=== PATIENT | female | born 1970 | race Hispanic/Latino ===

== ENCOUNTER 2019-03-31 18:33 | Emergency (ER) | payer SELFPAY ==
[2019-03-31 18:41] VITALS: TEMP 98.8; O2SAT 98
--- NOTE | 2019-03-31 21:04 | ED PDOC ---
Lower Extremity Pain/Injury Time Seen by Provider: 03/31/19 18:57 Chief Complaint (Nursing): Lower Extremity Problem/Injury Chief Complaint (Provider): Left Ankle Pain History Per: Patient History/Exam Limitations: no limitations Onset/Duration Of Symptoms: Hrs Additional Complaint(s): 48 year old female with no significant medical history presents to ED with left ankle pain since this morning. Patient states that she inverted her ankle by missing a step and her lateral aspect is worse with weight bearing and unable to walk. She took Tylenol this morning but denies numbness, tingling or other injury PMD: none provided (patient is visiting from [place]) Past Medical History Reviewed: Historical Data, Nursing Documentation, Vital Signs Vital Signs: Last Vital Signs Temp 98.8 F 03/31/19 18:38 Pulse 114 H 03/31/19 18:38 Resp 20 03/31/19 18:38 BP 158/98 H 03/31/19 18:38 Pulse Ox 98 03/31/19 18:38 Primary Care Provider: FAMILY PROVIDER,NO - Medical History PMH: No Chronic Diseases - Surgical History Surgical History: No Surg Hx - Family History Family History: States: No Known Family Hx - Social History Current smoker - smoking cessation education provided: No Alcohol: None Drugs: Denies - Home Medications Home Medications: Ambulatory Orders Medication Instructions Recorded Aspirin 325 mg PO DAILY #14 tab 03/31/19 - Allergies Allergies/Adverse Reactions: Allergies Allergy/AdvReac Type Severity Reaction Status Date / Time No Known Allergies Allergy Verified 03/31/19 18:41 Review of Systems ROS Statement: Except As Marked, All Systems Reviewed And Found Negative Musculoskeletal: Positive for: Leg Pain (left ankle pain, inverted), Other (bilateral aspect worse with weight bearing) Neurological: Negative for: Numbness, Other (no tingling) Physical Exam - Reviewed Nursing Documentation Reviewed: Yes Vital Signs Reviewed: Yes - Physical Exam Comments: . GENERAL APPEARANCE: Patient is awake, alert, oriented x 3, in no acute distress. SKIN: Warm, dry; (-) cyanosis. CHEST AND RESPIRATORY: (-) chest wall tenderness. Lungs: (-) rales, (-) rhonchi, (-) wheezes; breath sounds equal bilaterally. HEART AND CARDIOVASCULAR: (-) irregularity; (-) murmur, (-) gallop. ANKLE: both lower extremities pulse 2+, capillary refill less than 2 seconds, LLE: lateral malleolus tenderness with swelling, full ROM, inversion causes pain. Achilles tendon intact and nontender. (-) deformity. (-) distal neurovascular deficit _. NEURO AND PSYCH: Mental status as above. - ECG O2 Sat by Pulse Oximetry: 98 (RA) Pulse Ox Interpretation: Normal Medical Decision Making Medical Decision Making: Time: 2039 Initial Plan: --Xray 2009 Xray reviewed by JON and determined that there are no acute fractures or dislocations. Supervisor [employer]ust[employer]ians agreed, and recommended berenice wrap, air cast, crutches, aspirin 325 mg as patient is flying tomorrow pt does not want crutches, states she doesnt want to bring on plane, will get a wheelchair to transport her at airport 2049 Patient is medically stable and cleared for discharge home Discussed results, diagnosis, treatment, return precautions nad f/u with pt who is understanding, in agreement and stable for dc Scribe Attestation: Documented by Carson Ngo acting as a scribe for Aravind Marcum PA-C. Provider Scribe Attestation: All medical record entries made by the Scribe were at my direction and personally dictated by me. I have reviewed the chart and agree that the record accurately reflects my personal performance of the history, physical exam, medical decision making, and the department course for this patient. I have also personally directed, reviewed, and agree with the discharge instructions and disposition. Disposition - Clinical Impression Clinical Impression: Left ankle sprain - Patient ED Disposition Is Patient to be Admitted: No Counseled Patient/Family Regarding: Studies Performed, Diagnosis, Need For Followup, Rx Given - Disposition Referrals: your, doctor [Other] Disposition: Routine/Home Disposition Time: 20:50 Condition: STABLE Additional Instructions: Thank you for letting us take care of you today. Rest, ice and elevate. Wear berenice wrap for compression, and air cast for support. Avoid walking for 3-4 days to give rest. Take Aspirin as directed. Follow up with your doctor IAN. The emergency medical care you received today was directed at your acute symptoms. If you were prescribed any medication, please fill it and take as directed. It may take several days for your symptoms to resolve. Return to the Emergency Department if your symptoms worsen, do not improve, or if you have any other problems. Please contact your doctor in 2 days for re-evaluation and follow up / or call one of the physicians/clinics you have been referred to that are listed on the Patient Visit Information form that is included in your discharge packet. Bring any paperwork you were given at discharge with you along with any medications you are taking to your follow up visit. Our treatment cannot replace ongoing medical care by a primary care provider (PCP) outside of the emergency department. Prescriptions: Aspirin 325 mg PO DAILY #14 tab Instructions: Ankle Sprain (DC) Forms: [employer] ([place]) Print Language: TAJIK - POA Present On Arrival: None
[2019-03-31 21:08] VITALS: BP 140/87; PULSE 79; RESP 19
--- NOTE | 2019-04-01 09:15 | RAD ---
Date of service: 03/31/2019 PROCEDURE: Left Ankle Radiographs. HISTORY: lateral swelling and pain, inverted ankle COMPARISON: None available. TECHNIQUE: 3 views obtained. FINDINGS: BONES: No acute fracture or destructive bony lesion identified. JOINTS: Normal. No osteoarthritis. Ankle mortise maintained. Talar dome intact SOFT TISSUES: [id number] anterior and lateral soft tissue edema identified. OTHER FINDINGS: None. IMPRESSION: [id number] soft tissue edema as per above. No acute fracture or dislocation left ankle.
== END 2019-03-31 20:54 | disposition home or self-care (01) ==
LOC: H.ER 18:33
DX: S93.402A Sprain of unspecified ligament of left ankle, initial encounter (principal); X50.9XXA Other and unspecified overexertion or strenuous movements or postures, initial encounter; Y92.89 Other specified places as the place of occurrence of the external cause